=== PATIENT | male | born 1965 | race African-American/Black ===

== ENCOUNTER 2022-12-15 15:00 | Emergency (ER) | payer OTHER ==
[~2022-12-15] VITALS: Ht 175.3 cm; Wt 89.7 kg
[2022-12-15 15:46] VITALS: BP 130/77; PULSE 82; RESP 16; TEMP 97.8; O2SAT 97
== END 2022-12-15 16:49 | disposition home or self-care (01) ==
LOC: ER 15:00
DX: S39.012A Strain of muscle, fascia and tendon of lower back, initial encounter (principal); S16.1XXA Strain of muscle, fascia and tendon at neck level, initial encounter; J45.909 Unspecified asthma, uncomplicated; V49.9XXA Car occupant (driver) (passenger) injured in unspecified traffic accident, initial encounter; Y93.89 Activity, other specified; Y92.410 Unspecified street and highway as the place of occurrence of the external cause; Y99.8 Other external cause status
CPT/HCPCS: 72040; 72100